=== PATIENT | female | born 1955 | race Caucasian/White ===

== ENCOUNTER 2017-02-19 11:41 | Day surgery (SDC) | payer BC ==
[2017-02-14 15:21] VITALS: BMI 33.3
[2017-02-19] MEDS ORDERED: Clindamycin/D5W 900 mg/50 ml Premix Bag ONE (13:28)
[2017-02-19] MEDS ORDERED: Fentanyl 100 MCG/2 ML VIAL ONE ×3 (15:40→17:28)
[2017-02-19] MEDS ORDERED: Midazolam HCl 2 mg/2 ml Vial ONE (15:40)
[2017-02-19] MEDS ORDERED: Lidocaine 1% PF 5 ML VIAL ONE (15:46)
[2017-02-19] MEDS ORDERED: Propofol 200 MG/20 ML VIAL ONE (15:46)
[2017-02-19] MEDS ORDERED: Dexamethasone 20 MG/5 ML VIAL ONE (15:46)
[2017-02-19] MEDS ORDERED: Bupivacaine/Epinephrine 0.25% 30 ML VIAL ONE (16:03)
[2017-02-19] MEDS ORDERED: Neomycin-Polymyxin 1 ML AMP ONE (16:03)
[2017-02-19] MEDS ORDERED: Sodium Chloride 0.9% 0 ML ONE (16:04)
[2017-02-19] MEDS ORDERED: Ketorolac Tromethamine 30 MG/ML VIAL ONE (17:00)
[2017-02-19] MEDS ORDERED: Ondansetron HCl/PF 4 MG/2 ML Vial IVP PRN (17:23)
[2017-02-19] MEDS ORDERED: Promethazine HCl 25 MG/ML VIAL IM/IV PRN (17:23)
[2017-02-19] MEDS ORDERED: HYDROcodone/Acetaminophen 5/325 mg Tablet ONE ×2 (18:45→18:50)
--- NOTE | 2017-02-19 18:54 | RAD ---
EXAM: INTRAPROCEDURE FLUOROSCOPY 02/19/17 HISTORY: ORIF radius fracture. COMPARISON: 02/09/17. FINDINGS: Findings two fluoroscopic views are provided for Dr. Prasad. Intraprocedure fluoroscopy demonstrate s ORIF hardware at the distal radius. Fracture lucency are noted. Alignment is near anatomic. IMPRESSION: Fluoroscopy as above. POS: [facility]
--- NOTE | 2017-02-19 22:03 | OP ---
DATE OF OPERATION: 02/19/2017 PREOPERATIVE DIAGNOSIS: Comminuted displaced right distal radius fracture. POSTOPERATIVE DIAGNOSIS: Comminuted displaced right distal radius fracture. PROCEDURE: Open reduction and internal fixation of right distal radius. SURGEON: Harpal Prasad M.D. ANESTHESIA: General. TECHNIQUE: The patient was given preoperative IV antibiotics, taken to the operating room, placed i n the supine position. Satisfactory general anesthesia was performed. The right upper extremity wa s sterilely prepped and draped in the usual fashion. After exsanguination, the tourniquet was raise d to 250 mmHg. A longitudinal incision was made on the volar aspect of the wrist just radial to the midline over the area of the flexor carpi radialis tendon. The incision was approximately 2.5 inche s in length. Blunt dissection was made down to the flexor carpi radialis tendon. This tendon was r etracted ulnarly and the remaining structures were retracted radially. The volar aspect of the dist al radius was exposed. The fracture was comminuted intra-articular and displaced. The fracture was reduced. Bipolar traction applied and forced over the dorsum of the wrist of the distal radius in much better position. A 3-hole Synthe[employer] volar plate was then placed over the distal radius. Initial ly, a 2.7 cortical screw was placed in the distal shaft. It was verified that all the fractures wer e in good alignment and the plate was in good position. Six additional 2.4 locking screws were plac ed distally into the comminuted fracture of the distal radius and then two 2.4 locking screws were p laced in the plate and in the distal shaft of the radius. This was all performed under fluoroscopic visualization and showed good reduction of all the fractures and proper placement of the plate and the screws. The wound was then copiously irrigated with antibiotic solution and was closed using 2- 0 Vicryl for the fat and subcutaneous tissue layer and the skin was closed with 3-0 Rapide. A 20 mL of 0.25% Marcaine with epinephrine was then used to infiltrate the area around the fracture and lorenza und the incision. A sterile dressing was applied. The patient was placed in a wrist immobilizer. Tourniquet was released. The patient was awakened, extubated, and transferred to the recovery room in stable condition. ESTIMATED BLOOD LOSS: None. COMPLICATIONS: None. TOURNIQUET TIME: 37 minutes. DISCHARGE MEDICATIONS: Tramadol 50 mg 1 q.6 h. as needed for pain, #50 with 1 refill. Patient has [place] 10 at home as well. Follow up in my office in 1 week.
== END 2017-02-19 19:43 | disposition home or self-care (01) ==
LOC: SDC 11:41
PROVIDERS: ATTEND Orthopaedic Surgery
PROC: 0PSH04Z Reposition Right Radius with Internal Fixation Device, Open Approach (ICD-10-PCS; principal; 2017-02-19)
DX: S52.501A Unspecified fracture of the lower end of right radius, initial encounter for closed fracture (principal); Z88.0 Allergy status to penicillin; Z90.722 Acquired absence of ovaries, bilateral
CPT/HCPCS: 76001; 96374; A4216; C1713; J1100; J1885; J2001; J2250; J2704; J3010; J3490

== ENCOUNTER 2020-07-21 09:00 | Outpatient (CLI) | payer BC | END 2020-07-21 09:01 | disposition home or self-care (01) | LOC: BICMAMMO 09:00 | PROVIDERS: ATTEND Family Medicine | DX: Z12.31 Encounter for screening mammogram for malignant neoplasm of breast (principal) | CPT/HCPCS: 77063; 77067 ==

== ENCOUNTER 2021-02-06 14:27 | Outpatient (CLI) | payer BC, MEDICARE ==
[2021-02-06 15:41] LABS: #Basophils 0.1 10x3/uL (0.0-0.2); #Monocytes 0.7 10x3/uL (0.0-1.1); #Neutrophils 8.9 10x3/uL (1.5-8.4); %Basophils 0.4 % (0.0-2.0); %Eosinophils 0.3 % (0.0-6.0); %Lymphocytes 15.8 % (18.0-47.0); %Monocytes 6.2 % (0.0-10.0); %Neutrophils 76.7 % (40.0-75.0); Hemoglobin 13.8 g/dL (12.0-15.5); Mean Corpuscular HGB CONC 33.5 g/dL (32.0-36.0); Mean Corpuscular Hemoglobin 30.2 pg (27.0-33.0); Mean Corpuscular Volume 90.2 fl (81.6-98.3); Mean Platelet Volume 9.4 fl (7.4-10.4); Platelet Count 389 10x3/uL (150-450); RBC Distribution Width 12.3 % (11.5-14.5); Red Blood Cell (RBC) Count 4.57 10x6/uL (3.90-5.03); White Blood Cell (WBC) Count 11.6 10x3/uL (3.5-10.5)
[2021-02-06 16:06] LABS: ALT (SGPT) 24 U/L (8-55); AST (SGOT) 29 U/L (5-34); Alkaline Phosphatase 121 U/L (40-110); Anion Gap 16 mmol/L (10-20); BUN (Urea Nitrogen) 16 mg/dL (9.8-20.1); Bilirubin, Total 1.6 mg/dL (0.2-1.2); Calc. Creatinine Clearance 0 mL/min (70-130); Calcium 9.3 mg/dL (7.8-10.44); Carbon Dioxide 26 mmol/L (23-31); Chloride 100 mmol/L (98-107); Globulin 3.2 g/dL (2.4-3.5); Glucose 153 mg/dL (80-115); Protein, Total 7.2 g/dL (5.8-8.1); Sodium 138 mmol/L (136-145)
[2021-02-07 00:09] LABS: SARS-CoV-2 PCR by NAA Not Detected (NotDetected)
== END 2021-02-06 14:28 | disposition home or self-care (01) ==
LOC: LABBT 14:27
PROVIDERS: ATTEND Specialist
DX: Z01.812 Encounter for preprocedural laboratory examination (principal); K80.20 Calculus of gallbladder without cholecystitis without obstruction; Z20.822 Contact with and (suspected) exposure to COVID-19
CPT/HCPCS: 80053; 85025; U0003; U0005

== ENCOUNTER 2021-02-09 06:05 | Day surgery (SDC) | payer BC, MEDICARE ==
[2021-02-08 11:04] VITALS: BMI 30.7
[2021-02-09] MEDS ORDERED: Levofloxacin 500 mg/D5W 100 ml Premix Bag ONE (06:38)
[2021-02-09] MEDS ORDERED: Ketorolac Tromethamine 30 MG/ML VIAL ONE (06:38)
[2021-02-09] MEDS ORDERED: Acetaminophen 500 MG TAB ONE (06:38)
[2021-02-09] MEDS ORDERED: Lidocaine 1% w/Epinephrine 1:100K 20 ML VIAL ONE (06:40)
[2021-02-09] MEDS ORDERED: Bupivacaine 0.25% HCL 30 ML VIAL ONE (06:40)
[2021-02-09] MEDS ORDERED: Fentanyl 100 MCG/2 ML VIAL ONE ×2 (07:16→09:35)
[2021-02-09] MEDS ORDERED: Lidocaine 1% PF 5 ML VIAL ONE (07:41)
[2021-02-09] MEDS ORDERED: PHENYLEPHRINE-NS 100 MCG/ML 10 ML SYRINGE ONE (07:41)
[2021-02-09] MEDS ORDERED: Dexamethasone 20 MG/5 ML VIAL ONE (07:41)
[2021-02-09] MEDS ORDERED: PROPOFOL 200 MG/20 ML VIAL ONE (07:41)
[2021-02-09] MEDS ORDERED: Rocuronium Bromide 10 MG/ML (10ML VIAL) ONE (07:41)
[2021-02-09] MEDS ORDERED: Ondansetron PF 4 MG/2 ML Vial ONE (07:41)
[2021-02-09] MEDS ORDERED: Iothalamate Meglumine 60% 50 ML VIAL FS ONE (07:56)
[2021-02-09] MEDS ORDERED: HYDROcodone/Acetaminophen 5/325 mg Tablet ONE (10:25)
== END 2021-02-09 11:08 | disposition home or self-care (01) ==
LOC: SDC 06:05
PROVIDERS: ATTEND Specialist
PROC: 0FT44ZZ Resection of Gallbladder, Percutaneous Endoscopic Approach (ICD-10-PCS; principal; 2021-02-09)
PROC: BF101ZZ Fluoroscopy of Bile Ducts using Low Osmolar Contrast (ICD-10-PCS; principal; 2021-02-09)
DX: K80.12 Calculus of gallbladder with acute and chronic cholecystitis without obstruction (principal); K82.8 Other specified diseases of gallbladder; E78.00 Pure hypercholesterolemia, unspecified; Z79.899 Other long term (current) drug therapy; Z88.0 Allergy status to penicillin
CPT/HCPCS: 47532; 88304; J1100; J1885; J1956; J2405; J2704; J3010; Q9961-U8; S0020